=== PATIENT | female | born 1945 | race Caucasian/White ===

== ENCOUNTER 2020-11-24 13:58 | Emergency (ER) | payer MEDICARE, OTHER ==
[2020-11-24] MEDS ORDERED: Diltiazem 25 MG/5 ML SDV IVPUSH ONE ×2 (14:21→15:58)
[2020-11-24] MEDS ORDERED: Sodium Chloride 0.9% 1,000 ML IV SCH (14:30)
[2020-11-24] MEDS: Diltiazem 25 MG/5 ML SDV IVPUSH ONE ×2 (15:19→16:06)
--- NOTE | 2020-11-24 15:52 | CT ---
INDICATION: COVID positive 11/21/20 CT CHEST WITHOUT CONTRAST: Spiral 3.75 mm axial sections were obtained through the chest with axial sagittal and coronal reconstructions 11/24/20 and compared with 11/21/20 AP chest x-ray. The upper abdomen included on the examination showed low-density lesions in the left kidney which likely represent cysts. No gallstones were demonstrated. There are some calcifications in the abdominal aorta, descending thoracic aorta, ascending and arch of the aorta with suggestion of some aortic valvular calcification. The heart was not enlarged. No pericardial effusion was seen. Mediastinal lymphadenopathy is moderate with one relatively large node anterior to the trachea measuring 18 mm in the aortopulmonary window level. No definite mediastinal mass was seen. In the left upper lobe and both lower lobes there are focal subpleural areas of infiltrate with a relatively larger amount of infiltrate in the left lower lobe, densest in the subpleural area but extending anteroposteriorly at the lung base. These areas are compatible with pneumonia and the pattern would be compatible with COVID-19. No definite nodular masses were identified. IMPRESSION: 1. Findings compatible with COVID-19 pneumonia of moderate degree are noted. 2. ASD, probable aortic valve disease. 3. Probable cysts at the left kidney. Report was called to Dr. Dugan at 1522 hours. Total exam DLP was 965.49 mGy-cm. MTDD
[2020-11-24] MEDS ORDERED: Penicillin G Potassium 5 MILLUNITS in Sodium Chloride 0.9% 100 ML IV ONE (16:42)
--- NOTE | 2020-11-24 16:48 | EDM.PDOC ---
ED HPI GENERAL MEDICAL PROBLEM - General Chief Complaint: Cardiovascular Problem Stated Complaint: COVID POSITIVE Time Seen by Provider: 11/24/20 14:05 Source of Information: Reports: Patient History Limitations: Reports: No Limitations - History of Present Illness INITIAL COMMENTS - FREE TEXT/NARRATIVE: pt presents with palpitations, was seen in the clinic with possible SVT on EKG and sent in pt states she was having weakness when she was seen in clinic and told to go to [place] She was seen in the hospital in [place] on saturday and sent home on Decadron: states since she started taking the Decadron on saturday she has been feeling unwell with her pulse greater than 100 has had cough, no fever and occasional shortness of breath Went in to the clinic and sent to the ER as LA stayed persistently in 150-160 Onset: Gradual Onset Date: 11/21/20 Duration: Day(s):, Getting Worse Location: Reports: Chest Quality: Reports: Ache Severity: Moderate Improves with: Reports: None Worsens with: Reports: None Context: Reports: Other (pt has been ill with COVID, symptoms getting worse) Associated Symptoms: Reports: Cough, Headaches, Loss of Appetite, Malaise, Shortness of Breath, Weakness Treatments APNS: Reports: Other Medication(s) (amoxicillin , dexamethasone) - Related Data Allergies Allergy/AdvReac Type Severity Reaction Status Date / Time cephalexin Allergy Cannot Verified 11/24/20 14:27 Remember metoprolol Allergy Confusion Verified 11/24/20 14:27 pollen extracts Allergy Sneezing Verified 11/24/20 14:27 Sulfa (Sulfonamide Allergy Confusion Verified 11/24/20 14:27 Antibiotics) dust Allergy Sneezing Uncoded 11/24/20 14:27 Home Meds: Home Meds Warfarin [Coumadin] 1.25 mg PO [id number] 04/11/15 [History] Benazepril [Lotensin] 20 mg PO DAILY 06/02/16 [History] Furosemide [Lasix] 40 mg PO BID 06/02/16 [History] Warfarin [Coumadin] 2.5 mg PO MOFR 11/24/20 [History] Past Medical History HEENT History: Reports: Cataract Cardiovascular History: Reports: Aneurysm, CAD, Heart Failure, High Cholesterol, Hypertension COOK SOUP History: Reports: Musculoskeletal History: Reports: Fracture Other Musculoskeletal History: fx L ankle Neurological History: Reports: Concussion Psychiatric History: Reports: Psych Hospitalization(s), PTSD, Suicide Attempt Endocrine/Metabolic History: Reports: Obesity/BMI 30+ Hematologic History: Reports: Blood Transfusion(s) - Infectious Disease History Infectious Disease History: Reports: Chicken Pox, Measles, Novel Coronavirus, Scarlet Fever - Past Surgical History HEENT Surgical History: Reports: Cataract Surgery Other HEENT Surgeries/Procedures: bilat cataract surgery Cardiovascular Surgical History: Reports: Valve Replacement Other Cardiovascular Surgeries/Procedures: OPEN HEART SURGERY x GI Surgical History: Reports: Appendectomy Female Surgical History: Reports: Hysterectomy, Salpingo-Oophorectomy Musculoskeletal Surgical History: Reports: ORIF, Other (See Below) Other Musculoskeletal Surgeries/Procedures:: L ANKLE SURGERY, bilat bunionectomy Social & Family History - Family History Family Medical History: No Pertinent Family History - Caffeine Use Caffeine Use: Reports: Coffee ED ROS GENERAL - Review of Systems Review Of Systems: See Below Constitutional: Reports: Malaise Respiratory: Reports: Cough, Sputum Cardiovascular: Reports: Dyspnea on Exertion, Palpitations GI/Abdominal: Reports: No Symptoms Musculoskeletal: Reports: No Symptoms Skin: Reports: No Symptoms Neurological: Reports: No Symptoms Psychiatric: Reports: No Symptoms Hematologic/Lymphatic: Reports: No Symptoms Immunologic: Reports: No Symptoms ED EXAM, GENERAL - Physical Exam Exam: See Below Exam Limited By: No Limitations General Appearance: Alert, WD/WN, Mild Distress Eye Exam: Bilateral Eye: EOMI Ears: Normal External Exam Ear Exam: Bilateral Ear: TM normal Nose: Normal Inspection Throat/Mouth: Normal Oropharynx Head: Atraumatic, Normocephalic Neck: Supple, Non-Tender Respiratory/Chest: Decreased Breath Sounds (bilatearl), Rales Cardiovascular: Regular Rate, Rhythm GI/Abdominal: Soft, Non-Tender Back Exam: Normal Inspection, Full Range of Motion Extremities: Normal Range of Motion, Non-Tender, No Pedal Edema Neurological: Alert, Oriented, CN II-XII Intact Psychiatric: Normal Affect, Normal Mood Skin Exam: Warm, Dry Course - Vital Signs Last Recorded V/S: Last Vital Signs Temp 36.4 C 11/24/20 14:00 Pulse 165 H 11/24/20 14:00 Resp 18 11/24/20 14:00 BP Pulse Ox 98 11/24/20 14:00 - Orders/Labs/Meds Orders: Active Orders 24 hr Category Date Time Status CULTURE URINE [RM] Stat Lab 11/24/20 14:50 Received Labs: Laboratory Tests 11/24/20 11/24/20 11/24/20 Range/Units 14:35 14:35 14:35 WBC 10.0 (3.0-10.3) x10-3/uL RBC 4.57 (3.60-5.20) x10(6)uL Hgb 13.2 (11.4-15.5) g/dL Hct 39.8 (34.2-48.2) % MCV 87.1 (76.7-100.5) fL MCH 28.9 (23.9-33.9) pg MCHC 33.2 (31.9-34.8) g/dL RDW 16.0 (12.3-16.5) % Plt Count 215 (151-488) x10(3)uL PT 28.0 H (9.0-11.1) sec INR 2.77 H (1.00-1.24) Sodium 141 (135-145) mmol/L Potassium 3.5 (3.5-5.3) mmol/L Chloride 103 D (100-110) mmol/L Carbon Dioxide 29 (21-32) mmol/L BUN 30 H D (7-18) mg/dL Creatinine 1.3 H (0.55-1.02) mg/dL Est Cr Clr Drug Dosing TNP Estimated GFR (MDRD) 40 L (>60) BUN/Creatinine Ratio 23.1 H (9-20) Glucose 124 H (80-116) mg/dL Calcium 8.0 L (8.6-10.2) mg/dL Magnesium 2.0 (1.8-2.5) mg/dL Total Bilirubin 0.5 (0.1-1.3) mg/dL AST 51 H D (5-25) IU/L ALT 51 H D (12-36) U/L Alkaline Phosphatase 78 (56-112) IU/L Troponin I (4.0-60.3) pg/mL NT-Pro-B Natriuret Pep (<=450) pg/mL Total Protein 6.5 (6.0-8.0) g/dL Albumin 3.1 L (3.2-4.6) g/dL Globulin 3.4 g/dL Albumin/Globulin Ratio 0.9 Urine Color (YELLOW) Urine Appearance (CLEAR) Urine pH (5.0-6.5) Ur Specific [place] (1.010-1.025) Urine Protein (NEGATIVE) mg/dL Urine Glucose (UA) (NORMAL) mg/dL Urine Ketones (NEGATIVE) mg/dL Urine Occult Blood (NEGATIVE) Urine Nitrite (NEGATIVE) Urine Bilirubin (NEGATIVE) Urine Urobilinogen (NEGATIVE) mg/dL Ur Leukocyte Esterase (NEGATIVE) Urine RBC (0-5) Urine WBC (0-5) Ur Squamous Epith Cells (NS,R,O) Urine Bacteria (NS) 11/24/20 11/24/20 11/24/20 Range/Units 14:35 14:35 14:40 WBC (3.0-10.3) x10-3/uL RBC (3.60-5.20) x10(6)uL Hgb (11.4-15.5) g/dL Hct (34.2-48.2) % MCV (76.7-100.5) fL MCH (23.9-33.9) pg MCHC (31.9-34.8) g/dL RDW (12.3-16.5) % Plt Count (151-488) x10(3)uL PT (9.0-11.1) sec INR (1.00-1.24) Sodium (135-145) mmol/L Potassium (3.5-5.3) mmol/L Chloride (100-110) mmol/L Carbon Dioxide (21-32) mmol/L BUN (7-18) mg/dL Creatinine (0.55-1.02) mg/dL Est Cr Clr Drug Dosing Estimated GFR (MDRD) (>60) BUN/Creatinine Ratio (9-20) Glucose (80-116) mg/dL Calcium (8.6-10.2) mg/dL Magnesium (1.8-2.5) mg/dL Total Bilirubin (0.1-1.3) mg/dL AST (5-25) IU/L ALT (12-36) U/L Alkaline Phosphatase (56-112) IU/L Troponin I 30.2 (4.0-60.3) pg/mL NT-Pro-B Natriuret Pep 4604 H* (<=450) pg/mL Total Protein (6.0-8.0) g/dL Albumin (3.2-4.6) g/dL Globulin g/dL Albumin/Globulin Ratio Urine Color Yellow (YELLOW) Urine Appearance Clear (CLEAR) Urine pH 5.0 (5.0-6.5) Ur Specific [place] 1.010 (1.010-1.025) Urine Protein Negative (NEGATIVE) mg/dL Urine Glucose (UA) Normal (NORMAL) mg/dL Urine Ketones Negative (NEGATIVE) mg/dL Urine Occult Blood Negative (NEGATIVE) Urine Nitrite Negative (NEGATIVE) Urine Bilirubin Negative (NEGATIVE) Urine Urobilinogen Normal (NEGATIVE) mg/dL Ur Leukocyte Esterase Moderate H (NEGATIVE) Urine RBC 5-10 H (0-5) Urine WBC 0-5 (0-5) Ur Squamous Epith Cells Occasional (NS,R,O) Urine Bacteria Few H (NS) Meds: Medications Discontinued Medications Generic Name Dose Route Start Last Admin Trade Name Freq PRN Reason Stop Dose Admin Acetaminophen 1,000 mg 11/24/20 19:47 11/24/20 19:54 Acetaminophen 500 Mg Tab PO 11/24/20 19:48 1,000 mg ONETIME ONE Administration Diltiazem HCl 20 mg 11/24/20 14:21 11/24/20 15:20 Diltiazem 25 Mg/5 Ml Sdv IVPUSH 11/24/20 14:22 20 mg ONETIME ONE Administration Diltiazem HCl 10 mg 11/24/20 15:15 11/24/20 16:06 Diltiazem 25 Mg/5 Ml Sdv IVPUSH 11/24/20 15:16 Not Given ONETIME ONE Diltiazem HCl 10 mg 11/24/20 15:58 11/24/20 16:06 Diltiazem 25 Mg/5 Ml Sdv IVPUSH 11/24/20 15:59 Not Given ONETIME ONE Sodium Chloride 1,000 mls @ 999 mls/hr 11/24/20 14:30 11/24/20 14:00 Normal Saline IV 999 mls/hr ASDIRECTED RASHI Administration Penicillin G Potassium 5 100 mls @ 100 mls/hr 11/24/20 16:42 11/24/20 17:10 millunits/ Sodium Chloride IV 11/24/20 17:41 100 mls/hr ONETIME ONE Administration - Re-Assessments/Exams Free Text/Narrative Re-Assessment/Exam: 11/24/20 16:48 pt has Afib on the monitor : 120-144 Given IVF and cardizem but not responsive CT chest done : indicates pt has viral pneumonia : states she only can take Amoxicillin ,, which she started about 2 days ago States it has been helpful but she has remained tachycardic Free Text/Narrative Re-Assessment/Exam: 11/24/20 18:55 pt still has tachycardia despite cardizem for afib / tachycardia pt also was given penicillin for Covid pneumonia ( does not tolerate any other antibiotics) Called made to [facility] ( per pt's request) discussed with ER physician and agrees to accept pt for transfer Departure - Departure Time of Disposition: 20:05 Disposition: DC/Tfer to Acute Hospital 02 Reason for Transfer *Q: Other (transfer to higher level of care) Condition: Fair Clinical Impression: Palpitations, Pneumonia due to COVID-19 virus, Atrial fibrillation with rapid v entricular response, Dexamethasone adverse reaction Referrals: PCP,Not In Area [Primary Care Provider] - Forms: ED Department Discharge - My Orders Last 24 Hours: My Active Orders 11/24/20 14:50 CULTURE URINE [RM] Stat - Assessment/Plan Last 24 Hours: My Active Orders 11/24/20 14:50 CULTURE URINE [RM] Stat
[2020-11-24 17:47] VITALS: PULSE 165
[2020-11-24] MEDS ORDERED: Acetaminophen 500 MG Tab PO ONE (19:47)
== END 2020-11-24 20:10 ==
LOC: FB.ED 13:58
DX: U07.1 COVID-19 (principal); J12.82 Pneumonia due to coronavirus disease 2019; I48.91 Unspecified atrial fibrillation; T38.0X5A Adverse effect of glucocorticoids and synthetic analogues, initial encounter; I11.0 Hypertensive heart disease with heart failure; I50.9 Heart failure, unspecified; I25.10 Atherosclerotic heart disease of native coronary artery without angina pectoris; E66.9 Obesity, unspecified; Z68.37 Body mass index [BMI] 37.0-37.9, adult; Z88.1 Allergy status to other antibiotic agents; Z88.8 Allergy status to other drugs, medicaments and biological substances; Z91.048 Other nonmedicinal substance allergy status; Z88.2 Allergy status to sulfonamides; Z79.899 Other long term (current) drug therapy
CPT/HCPCS: 36415; 71250; 80053; 81001; 83735; 83880; 84484; 85027; 85610; 87086; 93010; 96365; 96375; 99285; 99285-25; A9270-GY; J2540; J3490; J7030

== ENCOUNTER 2021-09-29 11:13 | Inpatient (IN) | payer MEDICARE, OTHER ==
[2021-09-29] MEDS ORDERED: Ondansetron 4 MG Tab.DIS PO PRN ×2 (13:20→13:39)
[2021-09-29] MEDS ORDERED: Albuterol 8 GM Inhaler INH PRN (13:39)
[2021-09-29] MEDS ORDERED: Colchicine 0.6 MG Tab PO PRN (13:39)
[2021-09-29] MEDS ORDERED: Lidocaine 1% PF 2 ML SDV INJECT ONE (13:51)
[2021-09-29] MEDS ORDERED: Warfarin Sliding Scale PO SCH (14:00)
[2021-09-29] MEDS ORDERED: VANCOmycin 1.5 GM/300 ML 1.5 GM in Premix Bag 1 BAG IV SCH (14:00)
[2021-09-29] MEDS: Acetaminophen/HYDROcodone 325-5 MG Tab PO PRN (14:55)
[2021-09-29] MEDS: Furosemide 40 MG Tab PO SCH (15:00)
[2021-09-29] MEDS: Piperacillin/Tazobactam 3.375 GM in Sodium Chloride 0.9% 50 ML IV SCH ×2 (17:09→21:35)
[2021-09-29] MEDS: Potassium Chloride 20 MEQ Packet PO SCH (21:15)
[2021-09-29] MEDS: Acetaminophen 500 MG Tab PO PRN (21:38)
[2021-09-29] MEDS: Sodium Chloride 0.9% 10 ML Syringe FLUSH PRN (22:05)
[2021-09-30] MEDS: Piperacillin/Tazobactam 3.375 GM in Sodium Chloride 0.9% 50 ML IV SCH ×4 (04:07→21:28)
[2021-09-30] MEDS: Acetaminophen/HYDROcodone 325-5 MG Tab PO PRN ×3 (04:20→21:20)
[2021-09-30] MEDS: Sodium Chloride 0.9% 10 ML Syringe FLUSH PRN ×4 (04:40→22:30)
[2021-09-30] MEDS ORDERED: Fluconazole 150 MG Tab PO ONE (08:30)
[2021-09-30] MEDS: Furosemide 40 MG Tab PO SCH ×2 (08:32→13:40)
[2021-09-30] MEDS: Potassium Chloride 20 MEQ Packet PO SCH ×3 (08:33→21:10)
[2021-09-30] MEDS: Allopurinol 100 MG Tab PO SCH (08:33)
[2021-09-30] MEDS ORDERED: Potassium Chloride 20 MEQ Packet PO SCH (09:00)
[2021-09-30] MEDS: Docusate Sodium 100 MG Cap PO PRN (10:36)
[2021-09-30] MEDS: Acetaminophen 500 MG Tab PO PRN ×2 (10:36→17:17)
[2021-09-30] MEDS: VANCOmycin 1.5 GM/300 ML 300 ML IV SCH (13:40)
[2021-09-30] MEDS: Warfarin 2.5 MG Tab PO SCH (15:09)
[2021-10-01] MEDS: Piperacillin/Tazobactam 3.375 GM in Sodium Chloride 0.9% 50 ML IV SCH ×4 (04:19→21:35)
[2021-10-01] MEDS: Sodium Chloride 0.9% 10 ML Syringe FLUSH PRN ×3 (04:55→22:05)
[2021-10-01] MEDS: Acetaminophen/HYDROcodone 325-5 MG Tab PO PRN ×2 (08:39→13:34)
[2021-10-01] MEDS: Furosemide 40 MG Tab PO SCH ×2 (08:39→13:35)
[2021-10-01] MEDS: Potassium Chloride 20 MEQ Packet PO SCH ×3 (08:40→21:15)
[2021-10-01] MEDS: Docusate Sodium 100 MG Cap PO PRN (08:40)
[2021-10-01] MEDS: Allopurinol 100 MG Tab PO SCH (08:40)
[2021-10-01] MEDS: VANCOmycin 1.5 GM/300 ML 300 ML IV SCH (13:35)
[2021-10-01] MEDS: Warfarin 2.5 MG Tab PO SCH (15:51)
[2021-10-02] MEDS: Piperacillin/Tazobactam 3.375 GM in Sodium Chloride 0.9% 50 ML IV SCH ×4 (04:03→21:04)
[2021-10-02] MEDS: Sodium Chloride 0.9% 10 ML Syringe FLUSH PRN ×2 (06:00→21:08)
[2021-10-02] MEDS: Furosemide 40 MG Tab PO SCH ×2 (08:07→13:44)
[2021-10-02] MEDS: Potassium Chloride 20 MEQ Packet PO SCH ×3 (08:07→20:57)
[2021-10-02] MEDS: Allopurinol 100 MG Tab PO SCH (08:07)
[2021-10-02] MEDS: Acetaminophen/HYDROcodone 325-5 MG Tab PO PRN ×3 (08:12→20:59)
[2021-10-02] MEDS: Lactated Ringers 1,000 ML IV SCH ×2 (09:51→18:49)
[2021-10-02] MEDS ORDERED: Warfarin 2.5 MG Tab PO SCH (16:00)
[2021-10-02] MEDS: Docusate Sodium 100 MG Cap PO PRN (16:00)
[2021-10-03] MEDS: Lactated Ringers 1,000 ML IV SCH (03:35)
[2021-10-03] MEDS: Piperacillin/Tazobactam 3.375 GM in Sodium Chloride 0.9% 50 ML IV SCH (03:48)
[2021-10-03] MEDS: Sodium Chloride 0.9% 10 ML Syringe FLUSH PRN ×2 (03:49→09:50)
[2021-10-03] MEDS: Acetaminophen 500 MG Tab PO PRN ×2 (04:13→21:24)
[2021-10-03] MEDS ORDERED: VANCOmycin 1 GM/200 ML 200 ML IV SCH (08:00)
[2021-10-03] MEDS: Acetaminophen/HYDROcodone 325-5 MG Tab PO PRN ×2 (08:31→14:08)
[2021-10-03] MEDS: Potassium Chloride 20 MEQ Packet PO SCH ×3 (08:44→21:05)
[2021-10-03] MEDS: Furosemide 40 MG Tab PO SCH ×2 (08:44→14:09)
[2021-10-03] MEDS: Allopurinol 100 MG Tab PO SCH (08:44)
[2021-10-03] MEDS: Doxycycline 100 MG Tab PO SCH ×2 (09:48→21:06)
[2021-10-03] MEDS: Warfarin 2.5 MG Tab PO SCH (15:43)
[2021-10-04] MEDS: Furosemide 40 MG Tab PO SCH (08:19)
[2021-10-04] MEDS: Doxycycline 100 MG Tab PO SCH (08:21)
[2021-10-04] MEDS: Allopurinol 100 MG Tab PO SCH (08:22)
[2021-10-04] MEDS: Potassium Chloride 20 MEQ Packet PO SCH (08:22)
[2021-10-04] MEDS ORDERED: Docusate Sodium 100 MG Cap PO SCH (09:00)
[2021-10-04 09:24] VITALS: BP 128/67; PULSE 69
[2021-10-05] MEDS ORDERED: Metolazone 5 MG Tab PO SCH (07:30)
== END 2021-10-04 10:13 | disposition home or self-care (01) | DRG 603 ==
LOC: FB.MS 12:40
PROVIDERS: ADMIT Student in an Organized Health Care Education/Training Program; ATTEND Family Medicine
PROC: 0H9FXZZ Drainage of Right Hand Skin, External Approach (ICD-10-PCS; principal; 2021-10-02)
DX: L02.511 Cutaneous abscess of right hand (principal); N17.9 Acute kidney failure, unspecified; Z79.01 Long term (current) use of anticoagulants; I48.91 Unspecified atrial fibrillation; I25.10 Atherosclerotic heart disease of native coronary artery without angina pectoris; E87.6 Hypokalemia; N28.9 Disorder of kidney and ureter, unspecified; E66.9 Obesity, unspecified; L03.011 Cellulitis of right finger; Z88.1 Allergy status to other antibiotic agents; Z51.5 Encounter for palliative care; Z91.09 Other allergy status, other than to drugs and biological substances; Z88.2 Allergy status to sulfonamides; Z98.41 Cataract extraction status, right eye; Z98.42 Cataract extraction status, left eye; Z95.2 Presence of prosthetic heart valve; Z90.49 Acquired absence of other specified parts of digestive tract
CPT/HCPCS: 36410; 36415; 80048; 80053; 80202; 85025; 85610; 86140; 87040; 94150; A9270-GY; J2543; J3370; J7120